=== PATIENT | female | born 1965 | race Native Hawaiian/Other Pacific Islander ===

== ENCOUNTER 2018-12-25 17:37 | Outpatient (CLI) | payer OTHER ==
[2018-12-25 18:05] LABS: PLATELET COUNT 239 K/uL (152-353)
== END 2018-12-25 20:53 | disposition home or self-care (01) ==
LOC: LAB 17:37
PROVIDERS: Nurse Practitioner Family
DX: R53.83 Other fatigue (principal); E03.8 Other specified hypothyroidism; Z23 Encounter for immunization; Z11.59 Encounter for screening for other viral diseases
CPT/HCPCS: 80074; 84443; 85027; 86735; 86762; 86765

== ENCOUNTER 2019-02-28 15:24 | Outpatient (CLI) | payer OTHER | END 2019-02-28 20:48 | disposition home or self-care (01) | LOC: LABW 15:24 | DX: E03.8 Other specified hypothyroidism (principal) | CPT/HCPCS: 36415; 84443 ==

== ENCOUNTER 2020-02-05 07:18 | Outpatient (CLI) | payer OTHER ==
[2020-02-05 07:56] LABS: PLATELET COUNT 203 K/uL (152-353)
[2020-02-05 08:22] LABS: POTASSIUM 4.8 mmol/L (3.6-5.2)
== END 2020-02-05 23:15 | disposition home or self-care (01) ==
LOC: LABW 07:18
PROVIDERS: Family Medicine
DX: E03.8 Other specified hypothyroidism (principal); R53.83 Other fatigue; E55.9 Vitamin D deficiency, unspecified
CPT/HCPCS: 36415; 80053; 80061; 81000; 82306; 82607; 84443; 85027; 87088